=== PATIENT | female | born 1995 | race Caucasian/White ===

== ENCOUNTER → 2018-09-29 17:52 | Outpatient (CLI) | payer BC, SELFPAY ==
[2018-09-29 20:24] LABS: Chlamydia Trachomatis by PCR Negative (Negative); Neisserai gonorrhoeae by PCR Negative (Negative); Probe Check PASS; Sample Adequacy Control PASS; Specimen Processing Control PASS
== END ==
PROVIDERS: Family Provider Pediatrics; PCP Pediatrics; Referring Provider Obstetrics & Gynecology; Visit Provider Obstetrics & Gynecology
DX: Z12.4 Encounter for screening for malignant neoplasm of cervix (principal); Z11.3 Encounter for screening for infections with a predominantly sexual mode of transmission
CPT/HCPCS: 87491; 87591; 88175; G0145

== ENCOUNTER → 2018-10-14 16:47 | Outpatient (CLI) | payer BC, SELFPAY ==
[2018-10-14 17:46] LABS: Color, Urine Yellow (Yellow); Glucose, Dipstick Normal (Normal); Ketone-Dipstick Negative (Negative); Leukocyte Esterase-Dipstick Negative /ul (Negative); Nitrite-Dipstick Negative (Negative); Occult Blood-Urine Negative /ul (Negative); Protein-Dipstick Negative (Negative); Urine Bilirubin Dipstick Negative (Negative); Urine Clarity Clear (Clear); Urine Urobilinogen Normal (Normal)
[2018-10-14 17:55] LABS: Absolute Lymphocyte Count 1.78 X10^3/ul (0.83-4.51); Basophil# 0.03 X10^3/uL; Basophil% 0.3 % (0-1); Eosinophil# 0.17 X10^3/uL; Eosinophils% 1.4 % (0-5); Hematocrit 38.7 % (37-47); Hemoglobin 13.3 g/dl (12.0-15.0); Lymphocyte # 1.78 X10^3/ul (4.0); Lymphocyte % 14.9 % (19-41); Mean Corp Hgb Conc 34.4 g/gl (32-36); Mean Corpuscular Hgb 32.2 pg (27.0-32.0); Mean Corpuscular Volume 93.7 fL (81-99); Mean Platelet Vol. 10.2 fl (6.2-12.0); Monocyte% 7.5 % (0-10); Neutrophil # 9.02 X10^3/uL (2.7-7.7); Neutrophil % 75.6 % (47-70); Platelet Count 275 K/mm3 (150-450); RBC Distribution Width SD 40.1 fl (35.1-43.9); Red Blood Count 4.13 M/mm3 (4.2-5.4); White Blood Count 11.9 K/mm3 (4.4-11.0)
[2018-10-14 17:56] LABS: Amphetamine Urine VISTA NEGATIVE (<1000 ng/mL); Barbiturate Urine VISTA NEGATIVE (< 200 ng/mL); Benzodiazepine Urine VISTA NEGATIVE (< 200 ng/mL); Cocaine Urine VISTA NEGATIVE (< 300 ng/mL); Ecstacy Urine VISTA NEGATIVE (< 500 ng/mL); Methadone Urine VISTA NEGATIVE (< 300 ng/mL); PCP Urine VISTA NEGATIVE (< 25 ng/mL); THC Urine VISTA NEGATIVE (< 50 ng/mL); Vista UDS pH Range 5
[2018-10-14 18:01] LABS: POSITIVE COUNT NO; POSITIVE DIFFERENTIAL NO; POSITIVE MORPHOLOGY NO
[2018-10-14 18:23] LABS: Thyroid Stim Hormone (TSH) 1.58 uIU/mL (0.358-3.74)
[2018-10-14 19:02] LABS: HIV - WCH Non-Reactive (Nonreactive); Rubella IgG 325.2 IU/mL
[2018-10-15 02:06] LABS: Prenatal RPR NONREACTIVE (NONREACTIVE)
[2018-10-16 16:52] LABS: HEPATITIS B SURFACE AG Negative (Negative); Hep C Antibodies 0.1 s/co ratio (0.0-0.9)
== END ==
PROVIDERS: Visit Provider Obstetrics & Gynecology
DX: Z34.81 Encounter for supervision of other normal pregnancy, first trimester (principal)
CPT/HCPCS: 36415; 80307; 81002; 84443; 85025; 86703; 86762; 86803; 87340

== ENCOUNTER → 2019-02-17 10:27 | Outpatient (CLI) | payer BC, SELFPAY ==
[2019-02-17 14:03] LABS: Hematocrit 35.3 % (37-47); Hemoglobin 12.2 g/dL (12.0-15.0); Mean Corp Hgb Conc 34.6 g/dL (32-36); Mean Corpuscular Hgb 33.3 pg (27.0-32.0); Mean Corpuscular Volume 96.4 fL (81-99); Mean Platelet Vol. 10.8 fl (6.2-12.0); Platelet Count 234 K/mm3 (150-450); RBC Distribution Width CV 12.1 % (11.6-14.6); RBC Distribution Width SD 42.7 fl (35.1-43.9); Red Blood Count 3.66 M/mm3 (4.2-5.4); White Blood Count 12.5 K/mm3 (4.4-11.0)
[2019-02-17 14:15] LABS: Glucose Challenge Gest 1H 50g 116 mg/dL (70-140)
== END ==
PROVIDERS: Visit Provider Obstetrics & Gynecology
DX: Z34.82 Encounter for supervision of other normal pregnancy, second trimester (principal)
CPT/HCPCS: 36415; 82950; 85027

== ENCOUNTER → 2019-04-27 17:45 | Outpatient (CLI) | payer BC, SELFPAY | PROVIDERS: Referring Provider Obstetrics & Gynecology; Visit Provider Obstetrics & Gynecology | DX: Z36.85 Encounter for antenatal screening for Streptococcus B (principal) | CPT/HCPCS: 87081 ==

== ENCOUNTER → 2019-04-29 11:42 | Outpatient (CLI) | payer BC, SELFPAY ==
--- NOTE | 2019-04-29 11:51 | VDLE_ITS ---
Reason For Study: Swelling/Pain Rt calf RIGHT GSV is normal. CFV is compressible, spontaneous, phasic, competent and demonstrates normal augmentation. FV is compressible, spontaneous, phasic, competent and demonstrates normal augmentation. POP V is compressible, spontaneous, phasic, competent and demonstrates normal augmentation. T/P Trunk is compressible. PTV is compressible. RT PerV is compressible. Procedure Exam performed in department. A preliminary report was called and/or faxed to Julienne. Interpretation Summary Deep veins of the right lower extremity are patent and compressible segmentally. There is no evidence of right lower extremity deep vein thrombosis. Valvular competence appears intact within the proximal deep venous system on the right . The right great saphenous vein appears patent and compressible segmentally. Ordering Physician: Stefanie Robins Performed By: Sadaf Yi RVT
== END ==
PROVIDERS: Referring Provider Obstetrics & Gynecology; Visit Provider Obstetrics & Gynecology
DX: M79.89 Other specified soft tissue disorders (principal); M25.571 Pain in right ankle and joints of right foot
CPT/HCPCS: 93971

== ENCOUNTER → 2019-05-11 15:14 | Outpatient (CLI) | payer BC, MEDICAID, SELFPAY ==
[2019-05-11 15:37] LABS: Hematocrit 35.5 % (37-47); Mean Corp Hgb Conc 33.8 g/dL (32-36); Mean Corpuscular Hgb 31.5 pg (27.0-32.0); Mean Corpuscular Volume 93.2 fL (81-99); Mean Platelet Vol. 11.1 fl (6.2-12.0); Platelet Count 229 K/mm3 (150-450); RBC Distribution Width CV 11.7 % (11.6-14.6); RBC Distribution Width SD 39.5 fl (35.1-43.9); Red Blood Count 3.81 M/mm3 (4.2-5.4); White Blood Count 12.8 K/mm3 (4.4-11.0)
[2019-05-11 15:53] LABS: International Normalized Ratio 0.9; Prothrombin Time (Protime)PT. 11.9 SECONDS (11.7-14.9)
[2019-05-11 15:54] LABS: Partial Thromboplast Time 26.1 Seconds (24.1-36.2)
[2019-05-11 16:18] LABS: AST(SGOT) 17 U/L (15-37); Alanine Aminotransfer ALT/SGPT 27 U/L (13-56); EST Glomerular Filtration Rate 111 mL/min (>60); Est Glom Filt Rate - Afr Amer 134 mL/min (>60); Uric Acid 3.8 mg/dL (2.6-6.0)
== END ==
PROVIDERS: Visit Provider Obstetrics & Gynecology
DX: O26.893 Other specified pregnancy related conditions, third trimester (principal); R10.11 Right upper quadrant pain; Z3A.00 Weeks of gestation of pregnancy not specified
CPT/HCPCS: 36415; 82565; 84450; 84460; 84550; 85027; 85610; 85730

== ENCOUNTER 2019-05-25 08:05 | Inpatient (IN) | payer BC, MEDICAID, SELFPAY ==
[2019-05-24 22:11] VITALS: BMI 30.7
[2019-05-24] MEDS: Mag Hydrox/Al Hydrox/Simeth 30 ML UDC PO (22:30)
[2019-05-25] MEDS: Lactated Ringers 1,000 ML 50 ML IV (08:29)
[2019-05-25] MEDS: Oxytocin 30 units/NS 500 ml 30 UNITS/500 ML IV.SOLN IV (08:30)
--- NOTE | 2019-05-25 08:34 | PCM.HPOB.BLA ---
History and Physical Date of Admission: 05/25/19 OB HISTORY AND PHYSICAL EXAMINATION History of this : 24 yo female Ab0 with EDC 05/23/2019 by Ultrasound, presents to Labor and Delivery. Presents on 05/24/19 pm with CC of UCs, passing mucous plug and cramping. Observed overnight and with continued UCs. States painful and breathing through UCs when present. Cervix 1 cm to 2 cm with continued irregular UCs. 40 2/7 wk EGA care remarkable for - 1.) Allergic to TYLENOL(HIVES) 2.) Student at [employer] 3.) Wants MSAFP drawn, Declines CF testing 4.) Plans epidural Pertinent Past Medical History: None. Allergies: Tylenol Medications: During - acyclovir 200 mg capsule; 28 mg iron-800 mcg tablet Review of Systems: Non-contributory PAST HISTORY: Breast/Ovarian/Colon Cancers - Maternal Grandmother had Uterine Cancer approximately age 40-50 Infections - Vaccines Illnesses - Cold Sores Accidents - None History of Abnormal PAPS - Never Hospitalizations - None MENSTRUAL HISTORY: LMP Known?- DefiniteAmount/Duration - 7 days, Regularity - Regular, Frequency - monthly days, LMP - 08/08/18, Age Onset Menarche - 13 PAST PREGNANCIES: Total Pregnancies - 1; Full Term Pregnancies - 0; Premature - 0; Abortions, Induced - 0; Abortions, Spontaneous - 0; Ectopics - 0; Multiple Births - 0; Living Children - 0 FAMILY HISTORY: Maternal Grandparent - Neoplasm of uterus; Maternal Grandparent - Hypertension; Maternal Grandparent - Type 2 Diabetes; SOCIAL HISTORY: Alcohol Use - drinks occasionally not while Smoking - Never Diet - no special diet Lifestyle - moderate stress lifestyle and single Exercise - very active Seat Belt Use - always Employer - [employer] Job Description - Student/ Textile Dyer Illicit Drug Use - None Sexual Activity - ACTIVE ONE PARTNER Spouse-Sig Other Name - Blane Vasquez ([place]) Spouse-Sig Other Occupation - Clinical Orthoptist Control - PHYSICAL EXAMINATION General Appearance: 24 yo female in no acute distress Vital Signs: AF, VSS Lungs: regular rate and rhythm Breasts: deferred Abdomen: gravid Cervix: 2/75/-2 Presentation: cephalic Size: AGA Movement: present Heart: 130-140s avg variability Accels. occasional variables UCs q 3-5+ mins Impression /Plan: Intrauterine . Prodromal labor at 40 2/7 wk Goes to school 1 1/2 hr away and lives in [place]. Offered to keep and augment / induce. Elects to stay.
[2019-05-25 08:52] LABS: Absolute Lymphocyte Count 1.33 X10^3/uL (0.83-4.51); Absolute Neutrophil Count 8.8 X10^3/uL (2.0-7.7); Basophil# 0.04 X10^3/uL; Basophil% 0.4 % (0-1); Eosinophil# 0.14 X10^3/uL; Eosinophils% 1.3 % (0-5); Lymphocyte # 1.33 X10^3/ul (4.0); Lymphocyte % 11.9 % (19-41); Mean Corp Hgb Conc 33.3 g/dL (32-36); Mean Platelet Vol. 11.9 fl (6.2-12.0); Monocyte# 0.79 X10^3/uL; Monocyte% 7.1 % (0-10); NRBC Flagged by Analyzer 0 % (0-5); Neutrophil # 8.78 X10^3/uL (2.7-7.7); Neutrophil % 78.9 % (47-70); Platelet Count 184 K/mm3 (150-450); RBC Distribution Width CV 11.9 % (11.6-14.6); RBC Distribution Width SD 40.6 fl (35.1-43.9); Red Blood Count 3.87 M/mm3 (4.2-5.4); White Blood Count 11.1 K/mm3 (4.4-11.0)
[2019-05-25] MEDS: Lactated Ringers 500 ML 999 ML IV ×2 (09:05→12:42)
[2019-05-25] MEDS: fentaNYL-bupivacaine (epidural) 100 ML BAG EPIDURAL ×3 (10:15→20:25)
[2019-05-25] MEDS: Lactated Ringers 250 ML 999 ML IV (10:47)
[2019-05-25] MEDS: Mag Hydrox/Al Hydrox/Simeth 30 ML UDC PO (11:01)
[2019-05-25] MEDS: Lactated Ringers 1,000 ML 200 ML IV ×2 (15:18→20:20)
[2019-05-25] MEDS: Ondansetron 4 MG/2 ML Vial IV (18:29)
[2019-05-25] MEDS: Methylergonovine 0.2 MG/ML Ampul IM (22:03)
[2019-05-25] MEDS: Oxytocin 30 units/NS 500 ml 30 UNITS/500 ML IV.SOLN 999 UNITS IV (22:03)
--- NOTE | 2019-05-25 22:15 | OP.PCM_ITS ---
Vaginal Delivery Maternal Presentation: Active Labor Amniotic Membrane Rupture Type: Artificial Amniotic Fluid Description: Clear Final OMAR: 05/23/19 Final OMAR Source: US <20 weeks Gestational age: 40 Weeks and 2 Days [place] doctor who attended delivery (if requested by OB): Matheus Meza Date of Procedure: 05/25/19 Pre-Operative Diagnosis: IUP Post-Operative Diagnosis: IUP Surgery/ Procedure Performed: Vacuum Assisted Vaginal Delivery Type of Anesthesia: Epidural Description of Procedure: Spontaneous vaginal delivery of a viable male infant with Apgars of 8/9 from an occiput anterior presentation with clear amniotic fluid and normal three-vessel placenta. No episiotomy. First-degree right vaginal and perineal laceration repaired with 3-0 repeat suture under epidural. Also a left labial laceration not repaired because it was not bleeding which was approximately 2 cm long. Kiwi vacuum suction used x5 gentle pulls from low outlet with a single pop-off to assist with delivery of the head after 3-1/2 hours of pushing and in creasing maternal fatigue. Sponges okay. Delivery physician: Kevin Wang MD. Presentation: Vertex, NATALIA Placental Delivery Description: Spontaneous Placenta Disposition: [facility] Cord Vessel Description: 3 Vessels Cord Gases drawn per routine: ABG Cord Entanglement: None Estimated Blood Loss: 400 cc A gender: Male (1 minute): 8 (5 minute): 9 Episiotomy Description: None Laceration: Right Mediolateral, 1st degree Medications given after delivery: IV Pitocin, IM Methergin Complications: None
--- NOTE | 2019-05-25 22:21 | DCINST_ITS ---
Discharge Diet: No Restrictions Discharge Activity: May Shower, May Take a Tub Bath May resume sexual activity in: 4-6 weeks Additional Activity Instructions:: Nothing in the vagina for 4-6 weeks. You may return to work/school in 6 weeks. Call your doctor if you observe: Fever of 101 or Higher, Inability to urinate, Inability to have a bowel movement, Using more than one pad per hour Additional Instructions: If you experience any of the following, contact your healthcare provider. * Bleeding that soaks a pad every hour for 2 hours * Unrelieved incision or abdominal pain * Swelling, redness, discharge or bleeding from your incision or episiotomy site * Your incision begins to separate * Problems urinating (including inability to urinate or burning while urinating). * Visual changes * Severe headache * Flu-like symptoms * Pain or redness in one of both of your breasts * Pain, warmth, tenderness or swelling in your legs, especially the calf area * Frequent nausea and vomiting * Symptoms of depression or anxiety If you experience any of the following, call 911 or go to the nearest Emergency Room. * Chest pain * Problems breathing * Seizure activity * Partial or complete paralysis of a body part, slurred speech, weakness or drooping of the face, or a sudden inability to walk or hold your balance Allergies/Adverse Reactions: Allergies acetaminophen [From Tylenol] Allergy (Verified 05/24/19 22:13) Rash Medications to take at Discharge Acyclovir 1 tab PO DAILY PRN 05/24/19 Prenatabs FA 1 tab PO DAILY 05/24/19 Please Follow Up With: Kevin Wang MD - [phone] When: Call to make an appointment with your doctor in 6 weeks. Primary Care Physician: Care Physician,No Primary [Primary Care Provider] - Test Results: Test results from this visit will be discussed in further detail at your follow- up appointment, if applicable.
--- NOTE | 2019-05-25 22:21 | PCM.DCVAG ---
Discharge Diet: No Restrictions Discharge Activity: May Shower, May Take a Tub Bath May resume sexual activity in: 4-6 weeks Additional Activity Instructions:: Nothing in the vagina for 4-6 weeks. You may return to work/school in 6 weeks. Call your doctor if you observe: Fever of 101 or Higher, Inability to urinate, Inability to have a bowel movement, Using more than one pad per hour Additional Instructions: If you experience any of the following, contact your healthcare provider. Bleeding that soaks a pad every hour for 2 hours Unrelieved incision or abdominal pain Swelling, redness, discharge or bleeding from your incision or episiotomy site Your incision begins to separate Problems urinating (including inability to urinate or burning while urinating). Visual changes Severe headache Flu-like symptoms Pain or redness in one of both of your breasts Pain, warmth, tenderness or swelling in your legs, especially the calf area Frequent nausea and vomiting Symptoms of depression or anxiety If you experience any of the following, call 911 or go to the nearest Emergency Room. Chest pain Problems breathing Seizure activity Partial or complete paralysis of a body part, slurred speech, weakness or drooping of the face, or a sudden inability to walk or hold your balance Allergies/Adverse Reactions: Allergies acetaminophen [From Tylenol] Allergy (Verified 05/24/19 22:13) Rash Medications to take at Discharge Acyclovir 1 tab PO DAILY PRN 05/24/19 Prenatabs FA 1 tab PO DAILY 05/24/19 Please Follow Up With: Kevin Wang MD - [phone] When: Call to make an appointment with your doctor in 6 weeks. Primary Care Physician: Care Physician,No Primary [Primary Care Provider] - Test Results: Test results from this visit will be discussed in further detail at your follow-up appointment, if applicable.
[2019-05-25] MEDS: Oxytocin 30 units/NS 500 ml 30 UNITS/500 ML IV.SOLN 334 UNITS IV (22:42)
[2019-05-25] MEDS: oxyCODONE 5 MG Tablet PO (22:45)
--- NOTE | 2019-05-26 01:20 | NURSING ---
see QS for last set of recovery vital signs. vitals WNL.
[2019-05-26] MEDS: 0.9% Saline Lock 10 ML Syringe IV (01:28)
[2019-05-26 03:39] VITALS: BP 104/64; PULSE 92; RESP 16; TEMP 36.9
[2019-05-26 05:48] LABS: Hematocrit 29.6 % (37-47); Hemoglobin 9.9 g/dL (12.0-15.0); Mean Corp Hgb Conc 33.4 g/dL (32-36); Mean Corpuscular Hgb 30.8 pg (27.0-32.0); Mean Corpuscular Volume 92.2 fL (81-99); Mean Platelet Vol. 11.8 fl (6.2-12.0); Platelet Count 181 K/mm3 (150-450); RBC Distribution Width CV 11.9 % (11.6-14.6); RBC Distribution Width SD 40.3 fl (35.1-43.9); Red Blood Count 3.21 M/mm3 (4.2-5.4)
[2019-05-26] MEDS: Ibuprofen 600 MG Tablet PO ×3 (06:58→19:59)
[2019-05-26] MEDS: Dibucaine 30 GM Tube 1 APPLIC TOPICAL (06:59)
--- NOTE | 2019-05-26 08:54 | PCM.PN.OB ---
Subjective: Feeling well, minor cramping, some perineal discomfort, has not eaten yet, not passing flatus yet; nursing well Objective: AVSS Breasts soft, nipples atraumatic Fundus firm, midline, u/1, lochia small Perineal repair well approximated, minimal edema, no ecchymosis, erythema or drainage - Physical Exam Vitals/I&O's: Vital Signs Temp Pulse Resp BP 98.4 F 92 16 104/64 05/26/19 03:39 05/26/19 03:39 05/26/19 03:39 05/26/19 03:39 Oxygen Delivery Method Room Air Weight: 185 lb Body Mass Index (BMI) 30.7 Intake and Output for Last 24 Hours 05/24/19 05/25/19 05/26/19 23:59 23:59 23:59 Intake Total 4658.81 / 4658.81 1033 / 1033 Output Total 950 / 950 1100 / 1100 Balance 3708.81 / 3708.81 -67 / -67 General: Alert, Oriented x3, Cooperative, No apparent distress HEENT: PERRLA, EOMI Oral: Moist Mucosa Neck: Supple Lungs: Clear to auscultation, Normal air movement Cardiovascular: Regular rate, Regular Rhythm Abdomen: Bowel Sounds Present, Soft, Non Tender, Non-Distended, Hypoactive Bowel Sounds Extremities: No edema, Capillary Refill Less than 3 Seconds, No Calf Tenderness Skin: No rashes Musculoskeletal: No Tenderness to Palpation of Joints or Extremities Neurological: Cranial nerves II-XII grossly intact, Deep Tendon Reflexes 2+/4 and Symmetrical Psych/Mental Status: Normal Affect, Appropriate, Alert and oriented to time, place, person, mood and affect Laboratory Results 05/25/19 08:30: Blood Type O POSITIVE, Antibody Screen NEGATIVE 05/26/19 05:35: WBC 23.0 H, RBC 3.21 L, Hgb 9.9 L, Hct 29.6 L, MCV 92.2, MCH 30.8, MCHC 33.4, RDW Std Deviation 40.3, RDW Coeff of Bryant 11.9, Plt Count 181, MPV 11.8 Current Medications Acetaminophen (Tylenol) 1,000 mg PO Q8H PRN PRN PRN Reason: Pain Score 1-3/10 Acyclovir (Zovirax) 400 mg PO BID PRN PRN PRN Reason: cold sores Bisacodyl (Dulcolax) 10 mg RECTAL UD PRN PRN Reason: If no BM Dibucaine (Dibucaine) 1 applic TOPICAL TID PRN PRN; Protocol PRN Reason: Discomfort Last Admin: 05/26/19 06:59 Dose: 1 applicatio Documented by: Hydrocortisone (Hytone) 1 applic TOPICAL TID PRN PRN; Protocol PRN Reason: Discomfort Ibuprofen (Motrin) 600 mg PO Q6H PRN PRN PRN Reason: Pain Score 1-3/10 Last Admin: 05/26/19 06:58 Dose: 600 mg Documented by: Measles/Mumps/Rubella Vaccine Live (M-M-R Ii) 0.5 ml SC .ONCE ONE Stop: 05/26/19 10:01 Last Admin: 05/26/19 02:01 Dose: Not Given Documented by: Methylergonovine Maleate (Methergine) 0.2 mg IM X1 PRN PRN Reason: Excess bleeding/uterine atony Last Admin: 05/25/19 22:03 Dose: 0.2 mg Documented by: Oxycodone HCl (Oxyir) 5 - 10 mg PO Q4H PRN PRN PRN Reason: Pain Score 4-10/10 Last Admin: 05/25/19 22:45 Dose: 10 mg Documented by: Senna/Docusate Sodium (Senokot-S, Mona-Colace) 1 - 2 tablet PO DAILY PRN PRN PRN Reason: Constipation Simethicone (Mylicon) 80 mg PO PCHS PRN PRN Reason: Indigestion/Stomach pain Zolpidem Tartrate (Ambien (Generic)) 5 mg PO QHS PRN PRN PRN Reason: Insomnia Medical Necessity - Tobacco Use Smoking Status: Never smoker Assessment/Plan Assessment: 24yo G1now P001 delivered at 40w2d, by US first trimester US dating Mild PP anemia PP day #1, hypoactive BS, not eating yet, normal involution, otherwise normal PP course Plan: Discharge teaching began Continue routine care Regular diet FeSo4 325MG po QD to be ordered upon discharge
[2019-05-26 09:20] VITALS: BP 110/65; PULSE 88; RESP 16; TEMP 36.4
--- NOTE | 2019-05-26 10:31 | NURSING ---
helped the student with the assessment/vital signs and documentation of the assessment and vital signs
[2019-05-26 12:15] VITALS: BP 107/71; PULSE 92; RESP 18; TEMP 36.5
[2019-05-26] MEDS: Senna/Docusate Sodium 1 Tablet PO (13:08)
[2019-05-26 15:48] VITALS: BP 115/60; PULSE 103; RESP 16; TEMP 36.1
[2019-05-26 20:03] VITALS: BP 104/65; PULSE 92; RESP 18; TEMP 37.1; O2SAT 97
[2019-05-27 02:20] VITALS: BP 118/56; PULSE 83; RESP 16; TEMP 36.6
[2019-05-27] MEDS: Ibuprofen 600 MG Tablet PO (03:31)
[2019-05-27 08:00] VITALS: BP 104/64; PULSE 79; RESP 16; TEMP 36.1
[2019-05-27] MEDS: Senna/Docusate Sodium 1 Tablet PO (08:39)
--- NOTE | 2019-05-27 11:29 | PCM.PN.OB ---
Subjective: Pain well controlled, tolerating diet, passing flatus, going well; desires discharge home today Objective: AVSS Breasts filling, nipples mildly cracked Fundus firm, midline, u/1, lochia small Perineal repair well approximated, mild edema, no bruising, drainage or erythema noted - Physical Exam Vitals/I&O's: Vital Signs Temp Pulse Resp BP Pulse Ox 97 F L 79 16 104/64 97 05/27/19 08:00 05/27/19 08:00 05/27/19 08:00 05/27/19 08:00 05/26/19 20:03 Oxygen Delivery Method Room Air Weight: 185 lb Body Mass Index (BMI) 30.7 Intake and Output for Last 24 Hours 05/25/19 05/26/19 05/27/19 23:59 23:59 23:59 Intake Total 4658.81 / 4658.81 1033 / 1033 Output Total 950 / 950 1100 / 1100 Balance 3708.81 / 3708.81 -67 / -67 General: Alert, Oriented x3, Cooperative, No apparent distress HEENT: PERRLA, EOMI Oral: Moist Mucosa Neck: Supple Lungs: Clear to auscultation, Normal air movement Cardiovascular: Regular rate, Regular Rhythm Abdomen: Bowel Sounds Present, Soft, Non Tender, Non-Distended, Passing Flatus Extremities: Capillary Refill Less than 3 Seconds, No Calf Tenderness Skin: No rashes Musculoskeletal: No Tenderness to Palpation of Joints or Extremities Neurological: Cranial nerves II-XII grossly intact, Deep Tendon Reflexes 2+/4 and Symmetrical Psych/Mental Status: Normal Affect, Appropriate, Alert and oriented to time, place, person, mood and affect Current Medications Acyclovir (Zovirax) 400 mg PO BID PRN PRN PRN Reason: cold sores Bisacodyl (Dulcolax) 10 mg RECTAL UD PRN PRN Reason: If no BM Dibucaine (Dibucaine) 1 applic TOPICAL TID PRN PRN; Protocol PRN Reason: Discomfort Last Admin: 05/26/19 06:59 Dose: 1 applicatio Documented by: Hydrocortisone (Hytone) 1 applic TOPICAL TID PRN PRN; Protocol PRN Reason: Discomfort Ibuprofen (Motrin) 600 mg PO Q6H PRN PRN PRN Reason: Pain Score 1-3/10 Last Admin: 05/27/19 03:31 Dose: 600 mg Documented by: Methylergonovine Maleate (Methergine) 0.2 mg IM X1 PRN PRN Reason: Excess bleeding/uterine atony Last Admin: 05/25/19 22:03 Dose: 0.2 mg Documented by: Oxycodone HCl (Oxyir) 5 - 10 mg PO Q4H PRN PRN PRN Reason: Pain Score 4-1010 Last Admin: 05/25/19 22:45 Dose: 10 mg Documented by: Senna/Docusate Sodium (Senokot-S, Mona-Colace) 1 - 2 tablet PO DAILY PRN PRN PRN Reason: Constipation Last Admin: 05/27/19 08:39 Dose: 2 tablet Documented by: Simethicone (Mylicon) 80 mg PO PCHS PRN Zolpidem Tartrate (Ambien (Generic)) 5 mg PO QHS PRN PRN PRN Reason: Insomnia Medical Necessity - Tobacco Use Smoking Status: Never smoker Assessment/Plan Assessment: 24yo G1now P001 delivered at 40w2d, by US first trimester US dating Mild PP anemia PP day #2, normal involution, normal course Plan: Discharge teaching completed Discharge home today Colostrum or breastmilk to nipples then air dry, apply Lansinoh FeSo4 325MG po QD to be ordered upon discharge RTO 6 weeks for exam
== END 2019-05-27 10:30 | disposition home or self-care (01) | DRG 807 ==
LOC: WPOUT 08:05
PROVIDERS: Obstetrics & Gynecology; Admitting Provider Obstetrics & Gynecology; Referring Provider Obstetrics & Gynecology; Visit Provider Obstetrics & Gynecology
DX: O70.0 First degree perineal laceration during delivery (principal); Z37.0 Single live birth; O90.81 Anemia of the puerperium; Z3A.40 40 weeks gestation of pregnancy
CPT/HCPCS: 59025; 59050; 85025; 85027; 86850; 86900; 86901; 99218; J7120; A4216; G0378; J2405

== ENCOUNTER 2020-02-04 15:48 | Emergency (ER) | payer BC, SELFPAY ==
[2019-05-24 22:11] VITALS: BMI 30.7
[2020-02-04 15:52] VITALS: BP 131/75; PULSE 115; RESP 19; TEMP 37.7; O2SAT 98; BMI 27.6
[2020-02-04 15:56] VITALS: BP 131/75; PULSE 115; RESP 19; TEMP 37.7; O2SAT 98
--- NOTE | 2020-02-04 16:07 | ED.DCSUM_ITS ---
History of Present Illness Chief Complaint: Fever Detail of Chief Complaint: Concern for COVID?19 Informant: Patient Onset: Days Current Severity: Mild Maximum Severity: Mild Narrative: 24-year-old female presents for COVID?19 screening. She states that she came in contact with an [facility] person who was coughing and they were not going to be tested. He states that she has had diarrhea for a week and then yesterday and today felt like she had some shortness of breath which was mild today she checked her temperature at home and it was 100.0 Fahrenheit. Is also states that she has had myalgias for the last 2 days. It is normal here. She has not taken anything for a fever. Nobody is sick at home. Prior similar symptoms: No Past Medical History - Allergies and Home Meds Allergies/Adverse Reactions: Allergies acetaminophen [From Tylenol] Allergy (Verified 02/04/20 15:52) Rash Primary Care Physician: Care Physician,No Primary [NON-STAFF] - Prior records reviewed: Yes Lives: Spouse/ Significant Other Smoking Status: Never smoker Alcohol: None Drugs: None Review of Systems General: Reports: Fever. Denies: Chills Eyes: Denies: Visual changes - bilaterally, Diplopia ENT: Denies: Rhinorrhea, Sore throat Cardiovascular: Denies: Chest pain, Palpitations Respiratory: Reports: Dyspnea, Cough Gastrointestinal: Reports: Diarrhea Genitourinary: Denies: Dysuria Musculoskeletal: Reports: Myalgias Skin: Denies: Rash Neurological: Reports: Headache Psych: Denies: Depression Endocrine: Denies: Polyuria, Polydipsia Physical Exam Vital Signs/Narrative: Vital Signs Temp Pulse Resp BP Pulse Ox 02/04/20 15:56 100 F H 115 H 19 H 131/75 H 98 02/04/20 15:52 100 F H 115 H 19 H 131/75 H 98 Inital Vital Signs reviewed: Yes General: Well nourished, Well developed, No Acute Distress Head: Normocephalic, Atraumatic Eyes: Perrl, EOMI ENT: Moist mucous membranes Neck: Supple, Nontender, No lymphadenopathy Cardiovascular: Regular rate, Regular rhythm Respiratory: No distress, CTA bilaterally, Chest nontender Abdomen: Soft Skin: Normal color, No rash Neurological: Alert, Oriented x3 Psychological: Normal affect Diagnostic/Tx/Re-eval - Medical Decision Making Patient presents for COVID?19 screening. She does not have a fever here today. Her vital signs are stable. Her physical exam is normal. Her lungs are clear to auscultation. I will test her for COVID?19 and have her self quarantine un til her test results. She was counseled that she should also stay away from other family members in the household until she gets her test results. She acknowledged understanding. She was counseled that if she has worsening symptoms and needs to be re-seen that she could come back anytime. She acknowledged understanding of this. Patient stable for discharge. ED Disposition - Plan for ED Patient: Disposition: Home or Assisted Living Diagnosis: COVID-19, Fever Instructions: ED Upper Resp Infec No Abx Tx, ED Fever Control (Adult) Referrals: Care Physician,No Primary [NON-STAFF] -
[2020-02-04 17:39] LABS: Probe Check PASS; Specimen Processing Control PASS
== END 2020-02-04 16:36 | disposition home or self-care (01) ==
LOC: ED 16:34
PROVIDERS: Emergency Provider Student in an Organized Health Care Education/Training Program; PCP Pediatrics
DX: Z11.59 Encounter for screening for other viral diseases (principal); R50.9 Fever, unspecified
CPT/HCPCS: 87635; 99282; G2023; U0003

== ENCOUNTER → 2021-06-19 15:33 | Outpatient (CLI) | payer OTHER, SELFPAY ==
[2021-06-24 21:07] LABS: Chlamydia By Nucleic Acid AMP Negative (Negative)
[2021-06-25 08:53] LABS: Gonococcus By Nucleic Acid AMP Negative (Negative)
[2021-06-26 11:46] LABS: HPV Reflexed? NOT INDICATED
== END ==
PROVIDERS: PCP Pediatrics; Visit Provider Obstetrics & Gynecology
DX: Z12.4 Encounter for screening for malignant neoplasm of cervix (principal); Z11.3 Encounter for screening for infections with a predominantly sexual mode of transmission
CPT/HCPCS: 87491; 87591; 88175; G0145

== ENCOUNTER → 2021-07-04 15:20 | Outpatient (CLI) | payer OTHER, SELFPAY ==
[2021-07-04 17:29] LABS: Absolute Lymphocyte Count 2.02 X10^3/uL (0.83-4.51); Absolute Neutrophil Count 7.8 X10^3/uL (2.0-7.7); Basophil# 0.05 X10^3/uL; Basophil% 0.5 % (0-1); Eosinophil# 0.29 X10^3/uL; Eosinophils% 2.6 % (0-5); Hematocrit 39.1 % (37-47); Hemoglobin 13.3 g/dL (12.0-15.0); Lymphocyte # 2.02 X10^3/ul (0.83-4.51); Lymphocyte % 18.3 % (19-41); Mean Corpuscular Hgb 30.6 pg (27.0-32.0); Mean Corpuscular Volume 90.1 fL (81-99); Mean Platelet Vol. 10.5 fl (6.2-12.0); Monocyte# 0.84 X10^3/uL; Monocyte% 7.6 % (0-10); NRBC Flagged by Analyzer 0 % (0-5); Neutrophil % 70.7 % (47-70); Platelet Count 300 K/mm3 (150-450); RBC Distribution Width CV 12.5 % (11.6-14.6); RBC Distribution Width SD 41.1 fl (35.1-43.9); Red Blood Count 4.34 M/mm3 (4.2-5.4)
[2021-07-04 17:31] LABS: Color, Urine Yellow (Yellow); Glucose, Dipstick Normal (Normal); Ketone-Dipstick Negative (Negative); Leukocyte Esterase-Dipstick 25 /ul (Negative); Nitrite-Dipstick Negative (Negative); Occult Blood-Urine Negative /ul (Negative); Protein-Dipstick 30 mg/dl (Negative); Urine Bilirubin Dipstick Negative (Negative); Urine Clarity Clear (Clear); Urine Urobilinogen Normal (Normal); Urine pH 6.5 (5.0 - 8.0)
[2021-07-04 18:01] LABS: Thyroid Stim Hormone (TSH) 1.41 uIU/mL (0.358-3.74)
[2021-07-05 10:14] LABS: HIV - WCH Non-Reactive (Nonreactive); Hepatitis B Surface Antigen Non-Reactive (Nonreactive); Hepatitis C Antibody Non-Reactive (Nonreactive); Rubella IgG Reactive (Nonreactive); Syphilis Antibodies Non-reactive
== END ==
PROVIDERS: PCP Pediatrics; Visit Provider Obstetrics & Gynecology
DX: Z34.81 Encounter for supervision of other normal pregnancy, first trimester (principal)
CPT/HCPCS: 81002; 84443; 85025; 86703; 86762; 86780; 86803; 87086; 87088; 87340

== ENCOUNTER 2021-11-06 09:50 | Outpatient (CLI) | payer OTHER, SELFPAY ==
[2021-11-06 10:49] LABS: Glucose Challenge Gest 1H 50g 128 mg/dL (70-140); Hematocrit 32.2 % (37-47); Hemoglobin 10.7 g/dL (12.0-15.0); Mean Corp Hgb Conc 33.2 g/dL (32-36); Mean Corpuscular Hgb 30.7 pg (27.0-32.0); Mean Corpuscular Volume 92.3 fL (81-99); Mean Platelet Vol. 10.6 fl (6.2-12.0); Platelet Count 297 K/mm3 (150-450); RBC Distribution Width CV 12.1 % (11.6-14.6); RBC Distribution Width SD 40.7 fl (35.1-43.9); Red Blood Count 3.49 M/mm3 (4.2-5.4); White Blood Count 9.4 K/mm3 (4.4-11.0)
== END 2021-11-06 23:59 | disposition home or self-care (01) ==
LOC: WOBLAB 09:53
PROVIDERS: PCP Pediatrics; Visit Provider Obstetrics & Gynecology
DX: Z34.83 Encounter for supervision of other normal pregnancy, third trimester (principal)
CPT/HCPCS: 36415; 82950; 85027

== ENCOUNTER → 2022-01-07 | Outpatient (CLI) | payer OTHER, SELFPAY | END | disposition home or self-care (01) | LOC: LABSPEC 13:52 | PROVIDERS: PCP Pediatrics; Visit Provider Obstetrics & Gynecology | DX: Z36.85 Encounter for antenatal screening for Streptococcus B (principal) | CPT/HCPCS: 87077; 87081; 87186 ==

== ENCOUNTER 2022-02-04 20:37 | Inpatient (IN) | payer OTHER, SELFPAY ==
[2022-02-04 19:45] VITALS: BP 120/72; PULSE 113; PULSE 114; TEMP 36.4; O2SAT 97
[2022-02-04 20:09] VITALS: BMI 33.1
[2022-02-04] MEDS: 0.9% Saline Lock 10 ML Syringe IV (21:15)
[2022-02-04] MEDS: Lactated Ringers 1,000 ML 50 ML IV (21:15)
[2022-02-04 21:33] LABS: Absolute Lymphocyte Count 1.85 X10^3/uL (0.83-4.51); Absolute Neutrophil Count 8.2 X10^3/uL (2.0-7.7); Basophil# 0.02 X10^3/uL; Basophil% 0.2 % (0-1); Eosinophil# 0.09 X10^3/uL; Eosinophils% 0.8 % (0-5); Hematocrit 29.4 % (37-47); Hemoglobin 9.3 g/dL (12.0-15.0); Lymphocyte # 1.85 X10^3/ul (0.83-4.51); Lymphocyte % 16.6 % (19-41); Mean Corp Hgb Conc 31.6 g/dL (32-36); Mean Corpuscular Hgb 26.5 pg (27.0-32.0); Mean Corpuscular Volume 83.8 fL (81-99); Mean Platelet Vol. 11.3 fl (6.2-12.0); Monocyte# 0.96 X10^3/uL; Monocyte% 8.6 % (0-10); NRBC Flagged by Analyzer 0 % (0-5); Neutrophil # 8.17 X10^3/uL (2.7-7.7); Neutrophil % 73.3 % (47-70); Platelet Count 322 K/mm3 (150-450); RBC Distribution Width CV 14.6 % (11.6-14.6); RBC Distribution Width SD 44.2 fl (35.1-43.9); Red Blood Count 3.51 M/mm3 (4.2-5.4); White Blood Count 11.2 K/mm3 (4.4-11.0)
[2022-02-04] MEDS: Mag Hydrox/Al Hydrox/Simeth 30 ML UDC PO (22:00)
[2022-02-04 22:25] VITALS: BP 135/83; PULSE 106; O2SAT 97
--- NOTE | 2022-02-04 22:25 | HP.PCM.OB_ITS ---
HPI - General General Date of Admission: 02/04/22 Date of Service: 02/04/22 Chief Complaint: contractions HPI Narrative REMY JAMES, is a 26 F who presents with c/o contractions after membrane sweep today at 40 6/7 weeks gestation by LMP ([facility] 01/29/22). Issues -GBS positive -G1 - son with VSD -Tylenol allergy - hives [facility] Medical History Asthma Home Medications [id number] 1 mg tablet 1 tab PO DAILY 02/04/22 [History Last Taken 02/04/22 08:00] Allergy/AdvReac Type Severity Reaction Status Date / Time acetaminophen [From Tylenol] Allergy Rash Verified 02/04/22 20:10 Social History Smoking Status: Never smoker History Elective abortions Hx Para 1 Spontaneous abortions Hx # Term Pregnancies Ectopic pregnancies Hx # Pregnancies Multiple births # of living children Past Pregnancies Del. Date Name GA/Weeks Outcome Route Bth Weight Gen Labor Lgth Anesthesia Del Locatn Provider FOB Unknown 40 live - full term 8lb 6oz Male 13 epidu ral [place] NST FHR Rate Baby A Baseline: 130 Variability:: Moderate Accelerations:: 15 x 15 Decelerations:: Variable NST Reactive:: Yes FHR Category:: Category II Uterine Activity:: 2/10 Vital Signs Vital Signs Vital Signs: 02/04/22 19:45 02/04/22 19:45 02/04/22 19:45 Temperature 97.5 F L Temperature Source Pulse Rate 113 H Blood Pressure 120/72 BP Systolic 120 BP Diastolic 72 Pulse Ox 02/04/22 19:45 02/04/22 19:45 02/04/22 19:46 Temperature Temperature Source Temporal Pulse Rate 114 H Blood Pressure BP Systolic BP Diastolic Pulse Ox 97 Weight Weight: 87.543 kg Body Mass Index (BMI) 33.1 Physical Exam Const alert, oriented x3 and no apparent distress HEENT normocephalic Resp normal respiratory effort, normal air movement and clear to auscultation bilaterally Cardio regular rate and regular rhythm GI normal to inspection, nondistended, normoactive bowel sounds, soft to palpation, non-tender and non-distended Inspection: gravid Narrative: SVE 360/-3 Labs Labs Labs: Blood Type O POSITIVE Antibody Screen NEGATIVE Hct 29.4 % (37-47) L Hgb 9.3 g/dL (12.0-15.0) L Syphilis Total Ab Non-reactive Rubella IgG Antibody Reactive (Nonreactive) Hep Bs Antigen Non-Reactive (Nonreactive) Chlamydia DNA (JIM) Negative (Negative) Neisseria gonorrhoeae DNA (JIM) Negative (Negative) HIV 1&2 Antibody Non-Reactive (Nonreactive) Glucose 1 Hr 50 gm 128 mg/dL (70-140) Rhogam given: No Assessment & Plan (1) 40 weeks gestation of : PLAN: Admit given 40 6/7 wga with Cat II FHR Will observe and augment as indicated PCN for GBS
[2022-02-04 22:59] VITALS: PULSE 115
[2022-02-04 23:30] VITALS: PULSE 92
[2022-02-04] MEDS: LACTATED RINGERS 500 ML 999 ML IV (23:42)
[2022-02-04 23:45] VITALS: BP 105/68; PULSE 109; TEMP 36.5
[2022-02-05] VITALS (54 sets, daily range): BP systolic 98–137; BP diastolic 53–80; PULSE 81–222; RESP 16–18; TEMP 35.9–36.8; O2SAT 93–99
[2022-02-05] MEDS: fentaNYL-bupivacaine (epidural) 100 ML BAG EPIDURAL (00:39)
[2022-02-05] MEDS: Mag Hydrox/Al Hydrox/Simeth 30 ML UDC PO (01:07)
[2022-02-05] MEDS: Ondansetron 4 MG/2 ML Vial IV (02:08)
[2022-02-05] MEDS: 0.9% Saline Lock 10 ML Syringe IV (02:08)
[2022-02-05] MEDS: Penicillin G 3,000,000 Units 50 ML 100 UNITS IV (02:49)
[2022-02-05] MEDS: Oxytocin 30 units/NS 500 ml 30 UNITS/500 ML IV.SOLN 334 UNITS IV (04:00)
--- NOTE | 2022-02-05 04:16 | EX.PCM.OBRPT ---
Assessment & Plan (1) (spontaneous vaginal delivery): (2) 41 weeks gestation of : Vaginal Delivery Maternal Presentation Maternal Presentation: - (Latent labor) Operative Information Date of Procedure: 02/05/22 Pre-Operative Diagnosis: 41 weeks gestation Post-Operative Diagnosis: 41 weeks gestation Surgery / Procedure Performed: Spontaneous Vaginal Delivery Type of Anesthesia: Epidural Anesthesiologist: Missy Olivo Drain: Tyson to straight drain Estimated Blood Loss: 150 ml Time of Delivery: 03:54 Findings Description of Procedure: Patient was FD/0 station on my arrival. Amniotomy performed with clear fluid and patient pushed to deliver a vigorous female infant over 1 contractions. The was placed on the maternal abdomen and further attended by nursery personnel. The cord was doubly clamped and cut. The placenta delivered spontaneously and appeared intact on inspection. A second degree perineal laceration was repaired with 3-0 Vicryl Rapide. Sponge counts were correct x 2. Presentation: Vertex Amniotic Membrane Rupture Type: Artificial Amniotic Fluid Description: Clear Placental Delivery Description: Spontaneous Placenta Disposition: [facility] Cord Vessel Description: 3 Vessels Cord Entanglement: None Nuchal Cord Compression: Without compression Infant A Gender: Female (1 minute): 9 (5 minute): 9 Delayed Cord Clamping: Yes Post Vaginal Delivery Medications Given After Delivery: IV Pitocin Episiotomy Description: None Laceration: Midline, Perineal Extension/lac and 2nd degree Complication Complications: None
[2022-02-05] MEDS: Ibuprofen 600 MG Tablet PO ×3 (07:05→21:16)
[2022-02-05] MEDS: Senna/Docusate Sodium 1 Tablet PO (16:56)
[2022-02-06] MEDS: Ibuprofen 600 MG Tablet PO (03:04)
[2022-02-06 04:29] VITALS: BP 102/52; PULSE 99; RESP 15; TEMP 36.6
--- NOTE | 2022-02-06 07:18 | PCM.DC.BLA ---
Discharge Summary Date of Admission: 02/04/22 Date of Discharge: 02/06/22 Summary: Patient arrived on 02/04 in labor. Subsequently delivered on 02/05 vaginally. Routine recovery. Discharge home 02/06/2022 Meaningful Use Info Meaningful Use Diagnoses (Choose all that apply): None applicable Discharge Plan Admission Admit Date/Time: 02/04/22 20:37 Primary Reason for Your Visit: Labor Attending Provider: Kaye Westfall Primary Care Provider: Care Physician,Vanessa Primary Instructions Additional Instructions / Restrictions: Regular diet, weightbearing as tolerated, no intercourse for 4 to 6 weeks. Call if chest pain, shortness of breath, increased vaginal bleeding. Follow-up telehealth 2 weeks, 4 to 6 weeks Discharge Orders/Prescriptions Prescriptions: No Action 1 mg Tablet 1 tab PO DAILY Referrals / Follow Up: Care Physician,No Primary [Primary Care Provider] - Disposition Disposition (needs filled in before D/C Order can be placed): Home, Self Care
--- NOTE | 2022-02-06 07:19 | PCM.PN.OB ---
Subjective Subjective No overnight complaints Objective Data Objective Data Vital Signs: Vital Signs Temp Pulse Resp BP Pulse Ox O2 Del Method 97.8 F 99 15 102/52 L 96 Room Air 02/06/22 04:29 02/06/22 04:29 02/06/22 04:29 02/06/22 04:29 02/05/22 20:47 02/06/22 04:29 Oxygen Delivery Method Room Air Weight: 193 lb Body Mass Index (BMI) 33.1 Intake & Output: Intake and Output for Last 24 Hours 02/04/22 02/05/22 02/06/22 23:59 23:59 23:59 Intake Total 227.50 / 227.50 1803.33 / 1803.33 Output Total 700 / 700 Balance 227.50 / 227.50 1103.33 / 1103.33 Lab / Micro Data Result Diagrams: 02/04/22 21:15 Micro: Microbiology 02/04/22 21:15 Nasal Secretion SARS-CoV-2 Antigen (Rapid) - Final Physical Exam Const alert, oriented x3, no apparent distress, average body habitus, healthy appearing and well nourished HEENT normocephalic and moist oral mucous membranes Eyes PERRL Neck full ROM Chest inspection of chest normal and palpation of chest normal Resp normal respiratory effort, no retractions and no use of accessory muscles GI GI Narrative: Soft, nontender, uterus firm and below umbilicus Extremity normal to inspection, full ROM and no clubbing, cyanosis or edema Neuro moves all extremities and no focal motor deficits Psych mental status grossly normal, affect normal, speech normal and activity/motor behavior normal Assessment & Plan (1) (spontaneous vaginal delivery): PLAN: Plan day 2. Breast-feeding. Pain well controlled. Okay to discharge home today
[2022-02-06 07:55] VITALS: BP 96/66; PULSE 90; RESP 16; TEMP 36.6; O2SAT 97
== END 2022-02-06 11:30 | disposition home or self-care (01) | DRG 807 ==
LOC: WPOUT 20:43 → WP 20:43
PROVIDERS: Admitting Provider Obstetrics & Gynecology; Referring Provider Obstetrics & Gynecology; Visit Provider Obstetrics & Gynecology
DX: O76 Abnormality in fetal heart rate and rhythm complicating labor and delivery (principal); Z37.0 Single live birth; O62.0 Primary inadequate contractions; O99.824 Streptococcus B carrier state complicating childbirth; O70.1 Second degree perineal laceration during delivery; Z3A.41 41 weeks gestation of pregnancy
CPT/HCPCS: 59025; 59050; 85025; 86850; 86900; 86901; 87811; 99218; J7120; A4216; G0378; J2405